=== PATIENT | male | born 1935 | race African-American/Black ===

== ENCOUNTER 2018-01-07 12:05 | Emergency (ER) | payer MEDICARE, OTHER ==
[~2018-01-07] VITALS: Ht 167.6 cm; Wt 81.6 kg
[2018-01-07] MEDS ORDERED: UNOBMED (12:22)
[2018-01-07 12:30] VITALS: BP 161/84
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
[2018-01-07] MEDS ORDERED: Methocarbamol 500mg tab ORAL ONE (12:45)
[2018-01-07] MEDS ORDERED: LIDODERM700 M1 TOPIC (13:22)
[2018-01-07] MEDS ORDERED: ROBAXIN-750750 MG PO (13:22)
[2018-01-07] MEDS ORDERED: TYLENOL EXTRA500 MG ORAL (13:22)
[2018-01-07 13:30] VITALS: BP 149/79
--- NOTE | 2018-01-07 14:39 | Diagnostic Imaging Report ---
Indication: Pain Technique: XRAY Shoulder Compl R Comparison: None Findings: No evidence of acute fracture or dislocation. There is degenerative change of the acromioclavicular joint and glenohumeral joint with some small ossific densities projecting adjacent to inferior aspect of the glenoid. Imaged right lung is grossly clear. No radiopaque foreign body identified. IMPRESSION: Degenerative change. No acute fracture or dislocation. If there is persistent pain, consider nonemergent MRI of the shoulder.
== END 2018-01-07 14:20 | disposition home or self-care (01) ==
LOC: EMR 14:01
DX: S16.1XXA Strain of muscle, fascia and tendon at neck level, initial encounter (principal); S46.911A Strain of unspecified muscle, fascia and tendon at shoulder and upper arm level, right arm, initial encounter; V43.52XA Car driver injured in collision with other type car in traffic accident, initial encounter; Y92.410 Unspecified street and highway as the place of occurrence of the external cause; I10 Essential (primary) hypertension
CPT/HCPCS: 99283